=== PATIENT | male | born 1980 | race Hispanic/Latino ===

== ENCOUNTER 2020-08-14 09:53 | Outpatient (CLI) | payer OTHER ==
--- NOTE | 2020-08-14 10:51 | XRay Report ---
CHEST 2 VIEWS INDICATION: Pain, stroke. COMPARISON: None FINDINGS: Support devices: None. Heart: Within normal limits. Lungs/pleura: No acute air space or interstitial disease. No pneumothorax. Additional findings: None. IMPRESSION: Normal chest x-ray. BILATERAL HANDS 3 VIEWS INDICATION: Numbness in bilateral hands. COMPARISON: None. IMPRESSION: No acute osseous or soft tissue abnormality. No significant DJD. LEFT KNEE 3 VIEWS INDICATION: KNEE PAIN. COMPARISON: None. IMPRESSION: No acute osseous or soft tissue abnormality. No significant DJD. Signer Name: Vitaliy Awad Jr, MD Signed: 08/14/2020 10:46 AM Workstation Name: [id number]
== END 2020-08-14 09:54 | disposition home or self-care (01) ==
LOC: XRAY 09:53
PROVIDERS: ATTEND Internal Medicine
DX: M25.562 Pain in left knee (principal); M79.643 Pain in unspecified hand; R07.9 Chest pain, unspecified
CPT/HCPCS: 71046